=== PATIENT | male | born 1955 | race Caucasian/White ===

== ENCOUNTER → 2024-03-16 20:12 | Outpatient (REF) | payer OTHER, SELFPAY | LOC: MRI 3T 20:12 | PROVIDERS: ATTENDING PHYSICIAN Otolaryngology; FAMILY PHYSICIAN Family Medicine | DX: H90.A21 Sensorineural hearing loss, unilateral, right ear, with restricted hearing on the contralateral side (principal) | CPT/HCPCS: 70551 ==

== ENCOUNTER → 2025-01-08 08:46 | Outpatient (REF) | payer OTHER, SELFPAY | LOC: MRI 08:46 | PROVIDERS: ATTENDING PHYSICIAN Otolaryngology; FAMILY PHYSICIAN Family Medicine | DX: D33.3 Benign neoplasm of cranial nerves (principal); H90.3 Sensorineural hearing loss, bilateral | CPT/HCPCS: 70553; A9575 ==

== ENCOUNTER → 2025-03-13 09:34 | Outpatient (REF) | payer OTHER, SELFPAY | LOC: HWRAD 09:34 | PROVIDERS: ATTENDING PHYSICIAN Family Medicine | DX: M25.552 Pain in left hip (principal); M21.70 Unequal limb length (acquired), unspecified site | CPT/HCPCS: 73502 ==

== ENCOUNTER → 2025-06-16 13:14 | Outpatient (REF) | payer OTHER, SELFPAY | LOC: MRI 3T 13:14 | PROVIDERS: ATTENDING PHYSICIAN Otolaryngology; FAMILY PHYSICIAN Family Medicine | DX: D33.3 Benign neoplasm of cranial nerves (principal); H90.3 Sensorineural hearing loss, bilateral | CPT/HCPCS: 70553; A9575 ==